=== PATIENT | female | born 1985 | race Caucasian/White ===

== ENCOUNTER 2021-08-19 10:01 | Outpatient (CLI) | payer BC ==
[2021-08-19 10:58] LABS: Hemoglobin 13.9 g/dL (12.0-15.5); Mean Corpuscular HGB CONC 32.4 g/dL (32.0-36.0); Mean Corpuscular Volume 95.5 fl (81.6-98.3); Mean Platelet Volume 9.1 fl (7.4-10.4); Platelet Count 422 10x3/uL (150-450); RBC Distribution Width 12.8 % (11.5-14.5); Red Blood Cell (RBC) Count 4.49 10x6/uL (3.90-5.03); White Blood Cell (WBC) Count 6.5 10x3/uL (3.5-10.5)
[2021-08-19 11:09] LABS: BHCG - Serum Negative (NEGATIVE); Pregs Control Background? CLEAR/WHITE (CLR/WHITE); Pregs Control Bar Appear? YES (CONTROL BAR)
[2021-08-19 19:17] LABS: SARS-CoV-2 PCR by NAA Not Detected (NotDetected)
== END 2021-08-19 10:02 | disposition home or self-care (01) ==
LOC: CSHLAB 10:01
PROVIDERS: ATTEND Obstetrics & Gynecology
DX: Z01.812 Encounter for preprocedural laboratory examination (principal); Z20.822 Contact with and (suspected) exposure to COVID-19; R10.2 Pelvic and perineal pain
CPT/HCPCS: 84703; 85027; 86850; 86900; 86901; U0003; U0005

== ENCOUNTER 2021-08-24 09:18 | Day surgery (SDC) | payer BC ==
[2021-08-17 15:39] VITALS: BMI 26.2
[2021-08-19 10:58] LABS: Hemoglobin 13.9 g/dL (12.0-15.5); Mean Corpuscular HGB CONC 32.4 g/dL (32.0-36.0); Mean Corpuscular Volume 95.5 fl (81.6-98.3); Mean Platelet Volume 9.1 fl (7.4-10.4); Platelet Count 422 10x3/uL (150-450); RBC Distribution Width 12.8 % (11.5-14.5); Red Blood Cell (RBC) Count 4.49 10x6/uL (3.90-5.03); White Blood Cell (WBC) Count 6.5 10x3/uL (3.5-10.5)
[2021-08-19 11:09] LABS: BHCG - Serum Negative (NEGATIVE); Pregs Control Background? CLEAR/WHITE (CLR/WHITE); Pregs Control Bar Appear? YES (CONTROL BAR)
[2021-08-19 19:17] LABS: SARS-CoV-2 PCR by NAA Not Detected (NotDetected)
[2021-08-24] MEDS ORDERED: CeleCOXIB 100 MG CAP ONE (09:32)
[2021-08-24] MEDS ORDERED: Lidocaine 1% MPF 2 ML VIAL ONE (09:32)
[2021-08-24] MEDS ORDERED: Gabapentin 300 MG CAP ONE (09:32)
[2021-08-24] MEDS ORDERED: Famotidine/PF 20 mg/2ml Vial ONE (09:33)
[2021-08-24] MEDS ORDERED: PROPOFOL 20 ML ONE ×2 (10:27→11:30)
[2021-08-24] MEDS ORDERED: Rocuronium Bromide 10 MG/ML (10ML VIAL) ONE ×2 (10:28→10:35)
[2021-08-24] MEDS ORDERED: Fentanyl 250 MCG/5 ML VIAL ONE (10:28)
[2021-08-24] MEDS ORDERED: Dexamethasone 20 MG/5 ML VIAL ONE (10:28)
[2021-08-24] MEDS ORDERED: Midazolam HCl 2 mg/2 ml Vial ONE (10:28)
[2021-08-24] MEDS ORDERED: Lidocaine 1% PF 5 ML VIAL ONE ×2 (10:28)
[2021-08-24] MEDS ORDERED: Glycopyrrolate 0.2 MG/ML 5 ML SYRINGE ONE (10:28)
[2021-08-24] MEDS ORDERED: Ondansetron PF 4 MG/2 ML Vial ONE (10:28)
[2021-08-24] MEDS ORDERED: PHENYLEPHRINE-NS 100 MCG/ML 10 ML SYRINGE ONE (10:32)
[2021-08-24] MEDS ORDERED: ceFAZolin 2 GM/Dextrose 50 ML IVPB ONE (10:40)
[2021-08-24] MEDS ORDERED: SUGAMMADEX SODIUM 200 MG/2 ML VIAL ONE ×2 (11:18→11:38)
[2021-08-24] MEDS ORDERED: Ketorolac Tromethamine 30 MG/ML VIAL ONE (11:50)
[2021-08-24] MEDS ORDERED: Bupivacaine PF 0.5% 30 ML VIAL ONE (11:54)
[2021-08-24] MEDS ORDERED: EPINEPHrine 1 MG/ML AMP ONE (11:54)
[2021-08-24] MEDS ORDERED: Fentanyl 100 MCG/2 ML VIAL ONE (12:01)
== END 2021-08-24 13:10 | disposition home or self-care (01) ==
LOC: CSHSDC 09:18
PROVIDERS: ATTEND Obstetrics & Gynecology
PROC: 0WJJ4ZZ Inspection of Pelvic Cavity, Percutaneous Endoscopic Approach (ICD-10-PCS; principal; 2021-08-24)
DX: G89.29 Other chronic pain (principal); R10.2 Pelvic and perineal pain; K66.8 Other specified disorders of peritoneum; I10 Essential (primary) hypertension; F19.11 Other psychoactive substance abuse, in remission; Z87.891 Personal history of nicotine dependence; Z79.899 Other long term (current) drug therapy; Z88.1 Allergy status to other antibiotic agents; Z88.2 Allergy status to sulfonamides; Z88.8 Allergy status to other drugs, medicaments and biological substances; Z97.5 Presence of (intrauterine) contraceptive device; Z20.822 Contact with and (suspected) exposure to COVID-19
CPT/HCPCS: 36415; 84703; 85027; 86850; 86900; 86901; J0171; J0690; J1100; J1885; J2250; J2405; J2704; J3010; S0020; S0028; U0003; U0005

== ENCOUNTER 2021-11-25 16:55 | Emergency (ER) | payer BC ==
[~2021-11-25 16:55] MED LIST: Iopamidol 300 61% 100 ML VIAL FS ONE
[2021-11-25 17:34] LABS: #Basophils 0.1 10x3/uL (0.0-0.2); #Monocytes 0.8 10x3/uL (0.0-1.1); #Neutrophils 11.1 10x3/uL (1.5-8.4); %Basophils 0.5 % (0.0-2.0); %Eosinophils 0.2 % (0.0-6.0); %Monocytes 5.6 % (0.0-10.0); %Neutrophils 81.3 % (40.0-75.0); Hemoglobin 15.1 g/dL (12.0-15.5); Mean Corpuscular HGB CONC 34.8 g/dL (32.0-36.0); Mean Corpuscular Hemoglobin 31.9 pg (27.0-33.0); Mean Corpuscular Volume 91.6 fl (81.6-98.3); Mean Platelet Volume 9.3 fl (7.4-10.4); Platelet Count 379 10x3/uL (150-450); RBC Distribution Width 13.2 % (11.5-14.5); Red Blood Cell (RBC) Count 4.74 10x6/uL (3.90-5.03); White Blood Cell (WBC) Count 13.6 10x3/uL (3.5-10.5)
[2021-11-25 17:52] LABS: ALT (SGPT) 14 U/L (8-55); AST (SGOT) 18 U/L (5-34); Albumin 4.9 g/dL (3.5-5.0); Alkaline Phosphatase 72 U/L (40-110); Anion Gap 12 mmol/L (10-20); BUN (Urea Nitrogen) 16 mg/dL (7.0-18.7); Bilirubin, Total 0.6 mg/dL (0.2-1.2); Calc. Creatinine Clearance 0 mL/min (70-130); Calcium 10.1 mg/dL (7.8-10.44); Carbon Dioxide 21 mmol/L (22-29); Chloride 109 mmol/L (98-107); Globulin 3.1 g/dL (2.4-3.5); Glucose 99 mg/dL (70-105); Lipase 26 U/L (8-78); Potassium 4.4 mmol/L (3.5-5.1); Sodium 138 mmol/L (136-145)
[2021-11-25] MEDS ORDERED: Ondansetron PF 4 MG/2 ML Vial ONE (18:16)
[2021-11-25] MEDS ORDERED: Morphine 4 MG/ML VIAL ONE ×2 (18:16→21:29)
[2021-11-25 19:30] LABS: Bilirubin Neg (Negative); Blood, Urine 150 (Negative); Clarity Slightly Cloudy (Clear); Glucose, Urine (Dipstick) Normal (Negative); Ketone, Urine 15 mg/dL (Negative); Leukocyte Negative (Negative); Nitrite Negative (Negative); Protein, Urine (Dipstick) 15 mg/dl (Neg-Trace); Urobilinogen Normal mg/dL (Less than 2); pH, Urine 6.5 (5.0-9.0)
[2021-11-25 19:39] LABS: Pregnancy Test - Urine (BHCG) Negative (Negative); Pregu Control Background? CLEAR/WHITE (CLR/WHITE); Pregu Control Bar Appear? YES (CONTROL BAR)
[2021-11-25 19:55] LABS: Bacteria/HPF 1+ HPF (None Seen); RBC/HPF 21-50 HPF (0-3); WBC/HPF 0-3 HPF (0-3)
== END 2021-11-25 21:44 | disposition home or self-care (01) ==
LOC: CSHERS 16:55
DX: N13.2 Hydronephrosis with renal and ureteral calculous obstruction (principal); F17.210 Nicotine dependence, cigarettes, uncomplicated
CPT/HCPCS: 36415; 74177; 80053; 81003; 81015; 81025; 83690; 85025; 96374; 96375; 96376; J2270; J2405

== ENCOUNTER 2021-12-29 08:20 | Outpatient (CLI) | payer BC | END 2021-12-29 08:21 | disposition home or self-care (01) | LOC: CSHULT 08:20 | PROVIDERS: ATTEND Urology | DX: N20.1 Calculus of ureter (principal) | CPT/HCPCS: 76770 ==